=== PATIENT | male | born 1955 | race Caucasian/White ===

== ENCOUNTER 2019-09-06 19:10 | Observation (INO) ==
[2019-09-06] MEDS ORDERED: IOPAMIDOL 100 ML BOTTLE IV ONE (19:11)
--- NOTE | 2019-09-06 19:53 | Emergency Department Note ---
Skin/Abscess/FB HPI - General Chief complaint: Skin/Abscess/Foreign Body Stated complaint: Abscess on neck Time Seen by Provider: 09/06/19 19:39 Source: patient Mode of arrival: ambulatory Limitations: no limitations - History of Present Illness HPI Narrative: 64-year-old male, here accompanied by his , with a 3 to 4-day history of increasing in size and pain of a cystic-like lesion that used to be under the right side of his jaw. It used to be about 1 inch to 1-1/2 inch maximum size or diameter; used to be slightly or mildly fluctuant, i.e., not firm or hard, mildly mobile, and nontender. It became significantly more enlarged 3 to 4 days ago and was significantly more painful 2 nights ago such that it was difficult to sleep. There is a little bit of shortness of breath with laying down. His heart rate has gone up 5-10 points compared to usual. He has had no fevers. For his diabetes no medications including no metformin. Is controlling it with diet and exercise. No history of renal disease. REVIEW OF SYSTEMS: No chest pain, shortness of breath, nausea, vomiting, dizziness, anxiety, depression - Related Data Home Medications Medication Instructions Recorded Confirmed No Known Home Meds 09/06/19 09/06/19 Allergies Allergy/AdvReac Type Severity Reaction Status Date / Time No Known Drug Allergies Allergy Verified 09/06/19 19:24 Past Medical History - Past Medical History [facility] Narrative: Medical History Diabetes mellitus, type 2 (Chronic) Cigarette smoker (Chronic) Medical history: Denies: CAD (coronary artery disease), CVA, myocardial infarction, renal disease, TIA Psychiatric history: Denies: anxiety, depression - Social History smoking status: Current every day smoker Alcohol use: Reports: None Drug use: Reports: none. Denies: marijuana Physical Exam Limitations: no limitations General appearance: alert, in no apparent distress, nontoxic Head: atraumatic, normocephalic Eye: Present: EOMI Neck: Present: trachea midline, other (Quite large tender mass at the right side of the neck under the jaw/angle of the jaw area measuring 7.5 x 9.5 cm horizontal by vertical.It is moderate to very firm. Is moderate to very tender. It is trace pink compared to surrounding tissue. It does not seem to be markedly warm.). Absent: lymphadenopathy, thyromegaly Chest: Present: symmetric chest wall rise Respiratory: Present: normal lung sounds bilaterally. Absent: respiratory distr ess, wheezes, stridor, accessory muscle use, prolonged expiratory phase Cardiovascular: Present: regular rate, normal rhythm. Absent: systolic murmur, diastolic murmur Abdominal: Present: soft. Absent: distention, tenderness, guarding, rebound, rigidity, organomegaly, mass Extremities: Absent: calf tenderness Neurological: Present: alert, oriented X3 Psychiatric: Present: serious. Absent: agitated, anxious, poor eye contact Skin: Present: warm, dry Course Vital Signs Temperature 97.9 F 09/06/19 19:19 Pulse Rate 104 H 09/06/19 19:19 Respiratory Rate 18 09/06/19 19:19 Blood Pressure 126/79 09/06/19 19:19 Pulse Oximetry (%) 94 09/06/19 19:19 Temperature 98.3 F 09/07/19 04:00 Pulse Rate 90 09/07/19 04:00 Respiratory Rate 18 09/07/19 04:00 Blood Pressure 128/78 09/07/19 04:00 Pulse Oximetry (%) 94 09/07/19 04:00 Skin/Abscess/Foreign Body - [facility] Narrative Medical decision making narrative: 7:42 PM - interviewed and examined. Quite a large mass on the right side of the neck that is quite tender but not fluctuant and has a pre-existing cystic-like lesion for 4 to 5 years. Patient is diabetic. Will do basic labs including a POC Chem-8 to get the creatinine and then a CT scan of the neck soft tissue with contrast. 9:52 PM - CT scan comes back with bilateral small masses in the parotid gland and a rim enhancing necrotic or abscess lesion on the right measuring 5 cm. 10:00 PM - I spoke with ENT, Dr. Houston, who agrees with recommendation to go ahead and have patient be admitted because of the degree of size and discomfort. Patient qualifies to be admitted under observation and under hospitalist. 10:10 PM - I spoke with Dr. Ogden who kindly accepts this patient. He request that I add vancomycin 1500 mg and clindamycin 900 mg each as a single dose and continue the Zosyn every 6 hours. patient and agreeable. Further exam reveals extremely bad teeth (relatively few remaining) with significant decay/caries. Patient reports his last food was around 2 PM with 2 hotdogs on slices of bread. He has drank about 3 mugs of coffee during the day. He will be able to eat before midnight but after midnight n.p.o. A wet cough was occasionally present/noted. He was afebrile, nontacky, oxygenating fine on room air, not complaining of any respiratory difficulties or problems. On the right side of his neck and anteriorly and in a V shape in the upper chest, as if a sunburn with a V-neck shirt, was some significant redness with some warmth. He denied having sunburn or recent sun exposure. Therefore this is a form of loc alized cellulitis also extending from parotid probable abscess. - Lab Data Result diagrams: 09/06/19 20:08 09/07/19 05:18 Lab Results 09/06/19 09/06/19 09/06/19 Range/Units 20:08 20:08 20:08 WBC 8.7 (4.50-11.00) K/mcL RBC 4.75 (4.63-6.08) M/mcL Hgb 15.7 (13.7-17.5) g/dL Hct 45.8 (40.1-51.0) % POC Hct 47.0 (41.0-55.0) % MCV 96.4 (80.0-100.0) fL MCH 33.1 (26.0-34.0) pg MCHC 34.3 (31.0-36.0) g/dL RDW 12.2 (11.5-14.5) % Plt Count 179 (140-440) K/mcL MPV 10.5 H (7.4-10.4) fL Gran % 68.6 (38.0-78.0) % Lymph % (Auto) 17.9 (15.5-49.0) % [place] % (Auto) 12.2 H (1.0-12.0) % Eos % (Auto) 0.8 (0.0-7.0) % Baso % (Auto) 0.5 (0.0-2.0) % Gran # 5.94 (1.80-8.00) K/mcL Lymph # (Auto) 1.55 (1.50-4.80) K/mcL [place] # (Auto) 1.06 H (0.10-0.90) K/mcL Eos # (Auto) 0.07 (0.00-0.70) K/mcL Baso # (Auto) 0.04 (0.00-0.30) K/mcL POC Sodium 140 (133-145) mmol/L POC Potassium 4.0 (3.3-5.1) mmol/L POC Chloride 103 (96-108) mmol/L POC Total CO2 29 (22-30) mmol/L POC BUN 21 (8-23) mg/dl POC Creatinine 0.9 (0.7-1.2) mg/dl POC Glucose 117 H (70-105) mg/dL POC WB Ioniz Calcium 1.13 L (1.16-1.32) mmol/L C-Reactive Protein 8.6 H (0.0-0.8) mg/dl Disposition Pt seen by BUSINESS INTERN/PA only: No Clinical Impression: Abscess of parotid gland, Mass of both parotid glands Cellulitis Qualifiers: Site of cellulitis: neck Qualified Code(s): L03.221 - Cellulitis of neck Disposition: Xfer As Outpt/Obs ([facility]) Condition: Fair
[2019-09-06 20:20] LABS: POC Blood Urea Nitrogen 21 mg/dl (8-23); POC CO2 29 mmol/L (22-30); POC Calcium, Ionized 1.13 mmol/L (1.16-1.32); POC Chloride 103 mmol/L (96-108); POC Creatinine 0.9 mg/dl (0.7-1.2); POC Glucose, Random 117 mg/dL (70-105); POC Sodium 140 mmol/L (133-145)
[2019-09-06 21:15] LABS: Basophils # (Auto) 0.04 K/mcL (0.00-0.30); Basophils % (Auto) 0.5 % (0.0-2.0); Eosinophils # (Auto) 0.07 K/mcL (0.00-0.70); Eosinophils % (Auto) 0.8 % (0.0-7.0); Granulocytes % (Auto) 68.6 % (38.0-78.0); Hematocrit 45.8 % (40.1-51.0); Hemoglobin 15.7 g/dL (13.7-17.5); Lymphocytes # (Auto) 1.55 K/mcL (1.50-4.80); Lymphocytes % (Auto) 17.9 % (15.5-49.0); Mean Cell Volume 96.4 fL (80.0-100.0); Mean Corpuscular HGB Conc 34.3 g/dL (31.0-36.0); Mean Platelet Volume 10.5 fL (7.4-10.4); Monocytes # (Auto) 1.06 K/mcL (0.10-0.90); Monocytes % (Auto) 12.2 % (1.0-12.0); Platelet Count 179 K/mcL (140-440); RBC 4.75 M/mcL (4.63-6.08); Red Cell Distribution Width 12.2 % (11.5-14.5); WBC 8.7 K/mcL (4.50-11.00)
[2019-09-06 21:38] LABS: C-Reactive Protein 8.6 mg/dl (0.0-0.8)
[2019-09-06] MEDS ORDERED: PIPERACILLIN SODIUM/TAZOBACTAM 3.375 GM in DEXTROSE 5% IN WATER 50 ML IV ONE (22:22)
[2019-09-06] MEDS ORDERED: NALOXONE HCL 0.4 MG/ML VIAL IV PRN (22:34)
[2019-09-06] MEDS ORDERED: HYDROmorphone 2 MG/ML VIAL IV PRN (22:34)
[2019-09-06] MEDS ORDERED: ONDANSETRON 4 MG/2 ML VIAL IV PRN (22:34)
[2019-09-06] MEDS ORDERED: CLINDAMYCIN 900 MG in DEXTROSE 5% IN WATER 50 ML IV ONE (22:37)
[2019-09-06] MEDS ORDERED: VANCOMYCIN 1,500 MG in 0.9 % SODIUM CHLORIDE 500 ML IV ONE (22:39)
[2019-09-06] MEDS ORDERED: CLINDAMYCIN 600 MG/4 ML VIAL ONE (23:03)
[2019-09-06] MEDS: 0.9 % SODIUM CHLORIDE 1,000 ML IV SCH (23:45)
[2019-09-07] MEDS ORDERED: DEXTROSE 31 GM ORAL.SUSP PO PRN (02:32)
[2019-09-07] MEDS ORDERED: DEXTROSE 50% 50 ML VIAL IV PRN (02:32)
[2019-09-07] MEDS: ACETAMINOPHEN 325 MG TABLET PO PRN ×2 (05:12→10:46)
--- NOTE | 2019-09-07 05:33 | Cat Scan Report ---
CLINICAL INFORMATION: Right submandibular swelling COMPARISON: None. TECHNIQUE: 80 cc of Isovue-370 were injected intravenously and 25 seconds later, 2.5 mm helical slices were obtained from the inferior orbit through the supraclavicular region. Following reconstruction, 2.5 mm sagittal and coronal reformations were processed. The exam was reviewed at bone and soft tissue windows . The exam was performed using radiation dose optimization techniques including, but not limited to, automated exposure control, adjustment of the mA and/or kV according to patient size and use of iterative reconstruction technique. FINDINGS: A large (6 x 5 cm) complex fluid collection is seen in the right anterior triangle. It appears to originate from the inferior right parotid gland and extends inferiorly along the anterior border of the right sternocleidomastoid muscle. Moderate inflammation in the anterior sternocleidomastoid muscle likely indicates secondary involvement. The mass compresses the adjacent right internal jugular vein which is flattened, but remains patent. The right parotid gland is mildly enlarged with increased attenuation suggesting parotiditis. There are are 3-4 enlarged (greater than 15 mm) enhancing lymph nodes in the right parotid gland . 2-3 enlarging enhancing lymph nodes are also seen in the left parotid gland, however the left parotid gland is normal in size and attenuation - no evidence of inflammation. No other abnormality. IMPRESSION: 6 cm complex fluid collection in the right anterior triangle almost certainly represents a abscess. This likely originated from the inferior right parotid gland which is also enlarged and diffusely inflamed compatible with parotiditis. 4-5 enlarged enhancing reactive lymph nodes are seen within the right parotid gland. The abscess descends in the anterior triangle secondarily involving the anterior right sternocleidomastoid muscle which is locally inflamed. 3-4 reactive lymph nodes in the adjacent right carotid and jugular region. 3-4 mildly enlarged lymph nodes in the left parotid region also appreciated. Parotid adenopathy can be seen with HIV positivity that consider testing Interpreted and Authenticated by: John Paul Matt 09/07/19
[2019-09-07] MEDS ORDERED: PIPERACILLIN SODIUM/TAZOBACTAM 3.375 GM in DEXTROSE 5% IN WATER 50 ML IV SCH ×2 (06:00→06:15)
[2019-09-07 06:32] LABS: Basophils # (Auto) 0.03 K/mcL (0.00-0.30); Basophils % (Auto) 0.4 % (0.0-2.0); Eosinophils # (Auto) 0.17 K/mcL (0.00-0.70); Eosinophils % (Auto) 2.1 % (0.0-7.0); Granulocytes % (Auto) 65.1 % (38.0-78.0); Hematocrit 44.1 % (40.1-51.0); Hemoglobin 14.8 g/dL (13.7-17.5); Lymphocytes # (Auto) 1.67 K/mcL (1.50-4.80); Lymphocytes % (Auto) 20.5 % (15.5-49.0); Mean Cell Volume 96.5 fL (80.0-100.0); Mean Corpuscular HGB Conc 33.6 g/dL (31.0-36.0); Mean Platelet Volume 10.6 fL (7.4-10.4); Monocytes # (Auto) 0.97 K/mcL (0.10-0.90); Monocytes % (Auto) 11.9 % (1.0-12.0); Platelet Count 173 K/mcL (140-440); RBC 4.57 M/mcL (4.63-6.08); Red Cell Distribution Width 12.4 % (11.5-14.5); WBC 8.1 K/mcL (4.50-11.00)
[2019-09-07 06:51] LABS: ALT/SGPT 13 U/l (0-40); AST/SGOT 12 U/l (0-37); Albumin 3.7 gm/dL (3.2-5.2); Albumin/Globulin Ratio 1.2 (1.0-2.3); Alkaline Phosphatase 97 U/L (39-117); Bilirubin,Direct < 0.2 mg/dL (0.0-0.3); Bilirubin,Total 0.5 mg/dL (0.0-1.0); Blood Urea Nitrogen 20 mg/dl (8-23); Calcium 8.7 mg/dl (8.6-10.4); Carbon Dioxide 27 mmol/L (22-30); Chloride 101 mmol/L (96-108); Globulin 3.2 gm/dL (2.2-3.7); Glomerular Filtration Rate 95; Glucose 116 mg/dL (70-105); Lactate Dehydrogenase 122 U/L (94-250); Phosphorous 2.8 mg/dL (2.7-4.5); Triglycerides 60 mg/dl (<150); Uric Acid 4.6 mg/dL (2.5-8.0)
[2019-09-07] MEDS ORDERED: VANCOMYCIN PER PHARMACY IV SCH (07:00)
--- NOTE | 2019-09-07 08:37 | Internal Med History&Physical ---
Medical - H&P: HPI Patient information: Note initiated : 09/07/19 at 8:35 am Service Date, if different from initiated Date: [] Patient: Timothy Bailey a 64 y/o M admitted on 09/06/19 for Abscess on neck. Chief Complaint: [] History of present illness: Mr. Bailey is a 64 year old M Who presents the ED with right jaw pain and swelling. Patient reports about 4 to 5 years ago a small lump/cyst showed up on his right jaw. No change until about 3 to 4 days ago when it started becoming more swollen and tender. As well as erythematous. This continued to progress in size and tenderness of the past 3 to 4 days. Patient denies headache fever chills chest pain coughing shortness of breath. He was evaluated in the ED where a soft tissue CT showed a 6 cm complex fluid collection the right anterior triangle representing likely abscess and originating likely from the inferior right parotid gland, and large enhancing reactive lymph nodes. Case was discussed with Dr. Houston who would follow-up with patient in the morning. Patient placed on antibiotics. Patient states that some the tenderness in the upper mid chest is improved but the swelling is increased to behind the ear. Review of Systems: Pertinent positives as above. Denies headache/fever/chills/nausea/vomiting/chest or abdominal pain/cough/d yspnea/diarrhea. Remaining 10 point review of system reviewed negative Medical - H&P: PMH Medical history: Medical History Diabetes mellitus, type 2 (Chronic) Cigarette smoker (Chronic) Surgical history: Appendectomy hernia repair Ganglion cyst removal Social history: Patient works half pack cigarettes per day Denies alcohol use Lives at home with Medical - H&P: Meds Home Medications Medication Instructions Recorded Confirmed Type No Known Home Meds 09/06/19 09/06/19 History Allergies Allergy/AdvReac Type Severity Reaction Status Date / Time No Known Drug Allergies Allergy Verified 09/06/19 19:24 Medical - H&P: Exam - Constitutional Vitals: Temp Pulse Resp BP Pulse Ox 98.6 F 80 16 113/73 93 09/07/19 07:16 09/07/19 07:16 09/07/19 07:16 09/07/19 07:16 09/07/19 07:16 Exam: General: Alert, Awake, No acute Distress Eyes/N/T: EOMI, PERRL, large right jaw and extending submandibular, tender to touch, mild erythematous, Head/Neck: neck supple, normocephalic atraumatic CV: RRR, No murmurs, normal s1/s2 Pulm: Clear b/l, no wheezing/rhonchi/rales Abd: soft, nontender, +BS x4 Ext: no clubbing/cyanosis/edema Neuro: Alert, no focal deficits, moves all extremities, CN 2-12 grossly intact, symmetrical strength b/l upper/lower, sensations intact b/l upper/lower Skin: warm/dry Medical - H&P: Reslt - Labs CBC & Chem 7: 09/07/19 05:18 09/07/19 05:18 Labs: Short CBC 09/06/19 09/07/19 Range/Units 20:08 05:18 WBC 8.7 8.1 (4.50-11.00) K/mcL Hgb 15.7 14.8 (13.7-17.5) g/dL Hct 45.8 44.1 (40.1-51.0) % Plt Count 179 173 (140-440) K/mcL BMP 09/07/19 05:18 Sodium 138 Potassium 3.8 Chloride 101 Carbon Dioxide 27 BUN 20 Creatinine 0.8 Glucose 116 H Calcium 8.7 Liver Function 09/07/19 Range/Units 05:18 Total Bilirubin 0.5 (0.0-1.0) mg/dL Direct Bilirubin < 0.2 (0.0-0.3) mg/dL GGT 15 (8-61) U/L AST 12 (0-37) U/l ALT 13 (0-40) U/l Alkaline Phosphatase 97 (39-117) U/L Albumin 3.7 (3.2-5.2) gm/dL Medical - H&P: A/P - Narrative A/P Narrative: A: *Parotitis w/abscess: *Tooth decay: *Tobacco abuse: *Diabetes: Diet controlled * P: -Vanc(october d/c soon)/Zosyn, did get one dose of clindamycin -NPO until seen by ENT -Dr. Houston consulted -mrsa screen -Smoking cessation counseling -CC diet when able to take oral -ppx: SCD/ambulation full code Medical - H&P: Qual - Stroke Symptom Onset Unknown: No - VTE Deep Vein Thrombosis/Pulmonary Embolism Present on Admission: No
[2019-09-07] MEDS ORDERED: SENNOSIDES 1 TABLET PO PRN (08:42)
[2019-09-07] MEDS ORDERED: POTASSIUM CHLORIDE 40 MEQ in DEXTROSE 5% IN WATER 500 ML IV PRN (08:42)
[2019-09-07] MEDS ORDERED: MAGNESIUM SULFATE 2 GM/50 ML BAG IV PRN (08:42)
[2019-09-07] MEDS ORDERED: POLYETHYLENE GLYCOL 3350 17 GM PACKET PO PRN (08:42)
[2019-09-07] MEDS ORDERED: IPRATROPIUM/ALBUTEROL 3 ML AMPUL.NEB NEB PRN (08:42)
[2019-09-07] MEDS ORDERED: POTASSIUM CHLORIDE 20 MEQ TABLET PO PRN ×2 (08:42)
[2019-09-07] MEDS ORDERED: VANCOMYCIN PER PHARMACY IV ONE (08:42)
[2019-09-07] MEDS ORDERED: HYDROcodone/APAP 5/325MG TABLET PO PRN (08:42)
[2019-09-07] MEDS ORDERED: DOCUSATE SODIUM 100 MG CAPSULE PO SCH (09:00)
[2019-09-07] MEDS ORDERED: VANCOMYCIN 1,500 MG in 0.9 % SODIUM CHLORIDE 500 ML IV SCH (09:00)
[2019-09-07] MEDS: 0.9 % SODIUM CHLORIDE 1,000 ML IV SCH (09:07)
[2019-09-07] MEDS: INSULIN LISPRO 1 UNIT/0.01 ML UNIT SQ SCH ×2 (09:07→13:10)
--- NOTE | 2019-09-07 10:59 | Discharge Summary ---
Medical - DS: Prov Patient information: Note initiated : 09/07/19 at 10:56 am Service Date, if different from initiated Date: [] Patient: Timothy Bailey a 64 y/o M admitted on 09/06/19 for Abscess on neck. Chief Complaint: [] Date of admission: 09/06/19 23:16 Discharge date: 09/07/19 Primary care physician: PCP No Consults: 09/07/19 07:22 Consult to Physician [CONS] Routine Comment: Consulting Provider: Andrea Ogden Reason For Exam: Physician to Consult Medical - DS: Meds - Discharge Medications Active and Home Medications: Home Medications No Known Home Meds 09/06/19 [History Confirmed 09/06/19 Last Taken Unknown] Augmentin script on chart Medical - DS: Hosp Hospital Course: Mr. Bailey is a 64 year old M Who presents the ED with right jaw pain and swelling. Patient reports about 4 to 5 years ago a small lump/cyst showed up on his right jaw. No change until about 3 to 4 days ago when it started becoming more swollen and tender. As well as erythematous. This continued to progress in size and tenderness of the past 3 to 4 days. Patient denies headache fever chills chest pain coughing shortness of breath. He was evaluated in the ED where a soft tissue CT showed a 6 cm complex fluid collection the right anterior triangle representing likely abscess and originating likely from the inferior right parotid gland, and large enhancing reactive lymph nodes. Case was discussed with Dr. Houston who would follow-up with patient in the morning. Patient placed on antibiotics. Patient states that some the tenderness in the upper mid chest is improved but the swelling is increased to behind the ear. discussed case with Dr. Houston who aspirated fluid for analysis. f/u outpt with Dr. Houston for biopsies to evaluate for malignancy/etc... will d/c with Augmentin. A: *Right neck mass/Parotitis: *Tooth decay: *Tobacco abuse: *Diabetes: Diet controlled * Discharge diagnosis: Right neck mass with parotitis tobacco abuse diabetes - Time Spent with Patient Total time spent providing and/or coordinating discharge services: Greater than 30 minutes Medical - DS: Exam - Constitutional Vitals: Vital Signs Temp Pulse Pulse Resp BP BP BP 09/07/19 07:16 98.6 F 80 16 113/73 09/07/19 04:00 98.3 F 90 18 128/78 09/07/19 00:00 98.1 F 98 H 20 128/79 09/06/19 23:16 98.1 F 98 H 20 128/79 09/06/19 20:09 97.7 F 95 H 121/82 09/06/19 19:19 97.9 F 104 H 18 126/79 Pulse Ox 09/07/19 07:16 93 09/07/19 04:00 94 09/07/19 00:00 92 09/06/19 23:16 92 09/06/19 20:09 95 09/06/19 19:19 94 Intake and Output 09/06/19 09/07/19 09/07/19 21:59 05:59 13:59 Intake Total 606 50 Balance 606 50 Intake: IV 606 50 Cleocin 900 mg In Dextrose 5% 56 in Water 50 ml @ 100 mls/hr IV ONCE ONE Rx#:[id number] Zosyn 3.375 gm In Dextrose 5% 50 50 in Water 50 ml @ 100 mls/hr IV Q6H PENDING SALE TO [facility] Rx#:[id number] Vancomycin 1,500 mg In Sodium 500 Chloride 0.9% 500 ml @ 333.3 mls/hr IV ONCE ONE Rx#: [id number] Other: # Voids 1 Weight 99.337 kg 101.605 kg Medical - DS: Data Labs on day of discharge: Labs from last 24 hours 09/07/19 09/07/19 09/06/19 05:18 05:18 20:08 WBC 8.1 RBC 4.57 L Hgb 14.8 Hct 44.1 POC Hct 47.0 MCV 96.5 MCH 32.4 MCHC 33.6 RDW 12.4 Plt Count 173 MPV 10.6 H Gran % 65.1 Lymph % (Auto) 20.5 [place] % (Auto) 11.9 Eos % (Auto) 2.1 Baso % (Auto) 0.4 Gran # 5.29 Lymph # (Auto) 1.67 [place] # (Auto) 0.97 H Eos # (Auto) 0.17 Baso # (Auto) 0.03 POC Sodium 140 Sodium 138 POC Potassium 4.0 Potassium 3.8 POC Chloride 103 Chloride 101 Carbon Dioxide 27 POC Total CO2 29 Anion Gap 10.0 POC BUN 21 BUN 20 Creatinine 0.8 POC Creatinine 0.9 GFR Calculation 95 Glucose 116 H POC Glucose 117 H Uric Acid 4.6 Calcium 8.7 POC WB Ioniz Calcium 1.13 L Phosphorus 2.8 Magnesium 2.0 Total Bilirubin 0.5 Direct Bilirubin < 0.2 GGT 15 AST 12 ALT 13 Alkaline Phosphatase 97 Lactate Dehydrogenase 122 C-Reactive Protein Total Protein 6.9 Albumin 3.7 Globulin 3.2 Albumin/Globulin Ratio 1.2 Triglycerides 60 09/06/19 09/06/19 20:08 20:08 WBC 8.7 RBC 4.75 Hgb 15.7 Hct 45.8 POC Hct MCV 96.4 MCH 33.1 MCHC 34.3 RDW 12.2 Plt Count 179 MPV 10.5 H Gran % 68.6 Lymph % (Auto) 17.9 [place] % (Auto) 12.2 H Eos % (Auto) 0.8 Baso % (Auto) 0.5 Gran # 5.94 Lymph # (Auto) 1.55 [place] # (Auto) 1.06 H Eos # (Auto) 0.07 Baso # (Auto) 0.04 POC Sodium Sodium POC Potassium Potassium POC Chloride Chloride Carbon Dioxide POC Total CO2 Anion Gap POC BUN BUN Creatinine POC Creatinine GFR Calculation Glucose POC Glucose Uric Acid Calcium POC WB Ioniz Calcium Phosphorus Magnesium Total Bilirubin Direct Bilirubin GGT AST ALT Alkaline Phosphatase Lactate Dehydrogenase C-Reactive Protein 8.6 H Total Protein Albumin Globulin Albumin/Globulin Ratio Triglycerides Medical - DS: A/P - Patient/Caregiver Discharge Instructions Activity: increase activity as tolerated Diet: Consistent Carbohydrate - Follow up Plan Follow up with: No,PCP [Primary Care Provider] - Zenon Houston DO [Physician] - Disposition: Home, Self-Care Prognosis: Fair Rehab Potential: Fair Overall status at discharge: patient is progressing back to baseline Medical - DS: Qual - VTE Deep Vein Thrombosis/Pulmonary Embolism Present on Admission: No
[2019-09-07] MEDS ORDERED: 0.9 % SODIUM CHLORIDE 10 ML SYRINGE IV SCH (14:00)
--- NOTE | 2019-09-07 14:36 | Consultation ---
DATE OF CONSULTATION: 09/07/2019 CONSULTING PHYSICIAN: Andrea Ogden DO REASON FOR CONSULTATION: Right neck mass. HISTORY OF PRESENT ILLNESS: A 64-year-old male with significant history of tobacco abuse, showed up with a right neck mass that has been swollen for the last 4 to 5 days. He had a mass there for the last several years. He said it was probably about an inch in size in the right jaw area, but has not changed, so he did not have it evaluated. Over the last 4 to 5 days, he just had some increase in that size and then also some tenderness at the angle of the jaw. He was concerned, so he came in for evaluation via the [facility] ER last night. A CT was done, which showed a 5 to 6 cm fluid pocket in the right neck. Labs were done and showed him to be really nontoxic and not indicative of the large right neck abscess that he had. He does not complain of any other issues, especially swallowing or breathing at this time. He denies any significant weight loss. He does have some poor dentition, but he does not complain of any pain within the gums or neck, adjacent to the teeth. REVIEW OF SYSTEMS: As far as review of systems, the pertinent positives were just as described in the HPI, but overall he denied any headache or fever, chills, nausea, vomiting, chest pain or abdominal pain. He also has no increased cough or shortness of breath and does not complain of any diarrhea. Aside from that, the 10-point system was reviewed and showed no other positive symptoms. PAST MEDICAL HISTORY: He does have some diabetes type 2 as well as the chronic tobacco abuse, for which he smokes a pack a day for approximately 45 to 50 years. PAST SURGICAL HISTORY: He had an appendectomy remotely as well as a hernia repair and a left cyst removal on his wrist. SOCIAL HISTORY: From a social history standpoint, he does not use any illicit drugs or alcohol and lives at home with his and he is retired. HOME MEDICATIONS: In the chart, but he does not take a significant amount of medication. ALLERGIES: He denies any drug allergies. PHYSICAL EXAMINATION: VITAL SIGNS: Stable. His pulse was 80, his respirations were 16, and his blood pressure was 110/70. Pulse ox was 93 on room air. GENERAL: He was alert and oriented and pleasant. HEENT: His eyes showed good extraocular muscle function with reactive pupils bilaterally. Intraorally, he had 4 to 5 teeth that were still present, all with significant gum retraction as well as some inflammation around the gums. Intraorally, I did not see any evidence of any other masses. Oropharyngeally, he had a touch of fullness in that right tonsil region, but no obvious mass in that area. On the right neck, he did have a large 8 to 10 cm swelling in the right neck starting just postauricularly and going down to the level 3 or 4 area on there. It was definitely fluctuant in the midpoint. Almost, no erythema or induration around the surrounding tissue. CARDIOVASCULAR: He had regular rate and rhythm. No murmurs. PULMONARY: He was clear with no shortness of breath or stridor or wheezing. ABDOMEN: Soft, nontender, and nondistended with bowel sounds. EXTREMITIES: He does show no clubbing or cyanosis in the upper or lower extremities with no evidence of any rashes on the skin. NEUROLOGIC: He was alert with no obvious focal deficits. He had no numbness along the neck and had a good gag reflex. Muscle function within the tongue was symmetric as well. MUSCULOSKELETAL: He was able to get up, and in and out of the bed with no obvious gross deficiencies. LABORATORY DATA: From a lab standpoint, his white blood cell count was 8.7 yesterday and 8.1 today. Hemoglobin, hematocrit, and platelets were all stable. His chemistries are stable with just a slightly elevated blood glucose of 115. Chem panel otherwise looks normal as well. PROCEDURE: I did talk to him after reviewing that CT scan about draining some of this fluid out for culture and relieving some of the pressure in that right neck. Based on his clinical picture, it is not definitively an abscess, but there certainly is a fluid collection. We talked about the risks and benefits and alternatives of this and he agreed. At that point, I took 1% lidocaine and numbed up a spot over the fluctuant right neck. After that was done, an 18 gauge needle was inserted into the pocket and approximately 8 to 9 mL of brownish thick fluid was evacuated from that. It was cultured at that point. I did make one more exploration posterior to that, approximately 2 to 3 cm, near the tail of the parotid to see if I can get any more fluid out and I was unable to. At that point, I stopped. He tolerated that procedure well. ASSESSMENT AND PLAN: Right neck mass. He tolerated the removal of that fluid well and we will see what the lab shows us from a culture standpoint. I think my major concern is that he has got some necrotic right neck lymphadenopathy, possibly secondary to some head and neck cancer. With the amount of inflammation in that right neck right now, it is definitely hard to tell. I did advise him that we would send him home on some antibiotics, to keep that area clean and then reevaluate him early next week in the office, at which point we would likely do some ultrasound guided biopsies of some of the healthier tissue in that area to see if we can get a definitive diagnosis. He probably also needs an upper airway fiberoptic endoscopy to evaluate that pharynx as well as the larynx for possible sources of any infection or cancer. However, at this time, he is stable and he seems to be doing fine. So, I reinitiated his oral diet and I will talk to the hospitalist about getting him home on some antibiotics with close followup. He does understand that if he has any issues with shortness of breath or any increased difficulties to return to the hospital for further evaluation. I appreciate the consult. SP:concetta Job ID: [id number] Doc ID: [id number] Zenon Houston DO
[2019-09-08 06:57] LABS: ALT/SGPT 12 U/l (0-40); AST/SGOT 16 U/l (0-37); Albumin 4.5 gm/dL (3.2-5.2); Albumin/Globulin Ratio 1.7 (1.0-2.3); Alkaline Phosphatase 59 U/L (39-117); Bilirubin,Direct < 0.2 mg/dL (0.0-0.3); Bilirubin,Total 0.6 mg/dL (0.0-1.0); Blood Urea Nitrogen 14 mg/dl (8-23); C-Reactive Protein < 0.3 mg/dl (0.0-0.8); Calcium 9.7 mg/dl (8.6-10.4); Carbon Dioxide 27 mmol/L (22-30); Chloride 102 mmol/L (96-108); Globulin 2.6 gm/dL (2.2-3.7); Glucose 97 mg/dL (70-105); Lactate Dehydrogenase 167 U/L (94-250); Phosphorous 2.7 mg/dL (2.7-4.5); Triglycerides 127 mg/dl (<150)
[2019-09-08 07:02] LABS: Glomerular Filtration Rate 58
[2019-09-08 08:01] LABS: Basophils # (Auto) 0.01 K/mcL (0.00-0.30); Basophils % (Auto) 0.2 % (0.0-2.0); Eosinophils # (Auto) 0.03 K/mcL (0.00-0.70); Eosinophils % (Auto) 0.6 % (0.0-7.0); Granulocytes % (Auto) 71.9 % (38.0-78.0); Hematocrit 36.3 % (40.1-51.0); Hemoglobin 12.6 g/dL (13.7-17.5); Lymphocytes # (Auto) 1.07 K/mcL (1.50-4.80); Lymphocytes % (Auto) 19.6 % (15.5-49.0); Mean Cell Volume 88.3 fL (80.0-100.0); Mean Corpuscular HGB Conc 34.7 g/dL (31.0-36.0); Mean Platelet Volume 9.6 fL (7.4-10.4); Monocytes # (Auto) 0.42 K/mcL (0.10-0.90); Monocytes % (Auto) 7.7 % (1.0-12.0); Platelet Count 115 K/mcL (140-440); RBC 4.11 M/mcL (4.63-6.08); Red Cell Distribution Width 12.2 % (11.5-14.5); WBC 5.5 K/mcL (4.50-11.00)
== END 2019-09-07 12:55 | disposition home or self-care (01) ==
LOC: ED 19:10 → MEDSUR 19:10
PROVIDERS: ADMIT Internal Medicine; ATTEND Internal Medicine